=== PATIENT | female | born 1960 | race Caucasian/White ===

== ENCOUNTER 2016-08-29 01:40 | Inpatient (IN) | payer OTHER, MEDICARE ==
[~2016-08-29 01:40] MED LIST: ALPR1 PO; DICL75 PO; ESTR0.5T9 PO; LORTA5 PO; PROG100C PO; REST7.5C PO; ROBA750T3 PO; TRAZ100 PO; ZANA4CAP PO
[2016-08-29 02:19] VITALS: BP 138/88; PULSE 80; RESP 16; O2SAT 100
--- NOTE | 2016-08-29 02:25 | PD ---
HPI Chief Complaint: Psychiatric Symptoms Time Seen by Provider: 02:25 Travel History International Travel<30 days: No Contact w/Intl Traveler<30days: No Traveled to known affect area: No History of Present Illness HPI 55-year-old female presents to the emergency department as a transfer from [facility]. Patient was discharged there under a Langford act following a suspected overdose. Patient states she has history of depression and anxiety. She states that she takes Xanax and Ativan scheduled regularly around-the- clock. She denies any suicidal or homicidal ideations. States that she lost her in February and her depression is worsened. At this time she has no other symptoms to report [facility] Past Medical History Anxiety: Yes Cardiovascular Problems: Yes (MURMUR) Diminished Hearing: No Insomnia: Yes Musculoskeletal: Yes (LEFT FOOT DROP/NERVE DAMAGE) Past Surgical History Cholecystectomy: Yes Hysterectomy: Yes Tonsillectomy: Yes Social History Alcohol Use: No Tobacco Use: No Substance Use: No Allergies-Medications (Allergen,Severity, Reaction): Coded Allergies: Erythromycin (Verified Allergy, Severe, Rash, 09/22/15) Penicillin (Verified Allergy, Severe, Rash, 09/22/15) Shellfish (Verified Allergy, Severe, Rash, 09/22/15) Reported Meds & Prescriptions Reported Meds & Active Scripts Active Diclofenac Sodium Dr (Diclofenac Sod) 75 Mg Tab 75 Mg PO BID PRN Robaxin-750 (Methocarbamol) 750 Mg Tab 750 Mg PO QID PRN Reported Progesterone 100 Mg Cap 100 Mg PO Restoril 7.5 mg (Temazepam) 7.5 Mg Cap 1 Cap PO HS Hydrocodone/Acetaminophen 5 mg/325 mg 1 Tab Tab 1 Tab PO Q6H PRN Trazodone HCl 100 Mg Tab 100 Mg PO HS Zanaflex 4 mg capsule (Tizanidine HCl) 4 Mg Cap 4 Mg PO BID Estrace (Estradiol) 0.5 Mg Tab 1 Mg PO DAILY Xanax 1 Mg Tab (Alprazolam) 1 Mg Tab 1 Mg PO TID Review of Systems Except as stated in HPI: all other systems reviewed are Neg Physical Exam Narrative GENERAL: Well-nourished, well-developed female patient, in no acute distress SKIN: Focused skin assessment warm/dry. HEAD: Normocephalic. EYES: No scleral icterus. No injection or drainage. NECK: Supple, trachea midline. No JVD or lymphadenopathy. CARDIOVASCULAR: Regular rate and rhythm without murmurs, gallops, or rubs. RESPIRATORY: Breath sounds equal bilaterally. No accessory muscle use. GASTROINTESTINAL: Abdomen soft, non-tender, nondistended. MUSCULOSKELETAL: No cyanosis, or edema. BACK: Nontender without obvious deformity. No CVA tenderness. Data Data Last Documented VS Vital Signs Date Time Temp Pulse Resp B/P Pulse Ox O2 Delivery O2 Flow Rate FiO2 08/29/16 02:19 80 16 138/88 100 Room Air Orders Diet Regular Basic (08/29/16 Breakfast) [facility] Medical Decision Making Medical Screen Exam Complete: Yes Emergency Medical Condition: Yes Medical Record Reviewed: Yes Differential Diagnosis Mood disorder versus personality disorder versus adjustment reaction disorder versus overdose intentional versus accidental Narrative Course 55-year-old female presents to emergency department under a Langford act for psychiatric evaluation. Patient appears without distress. She is very fixated on getting her Xanax here today. Denies suicidal or homicidal ideations. Patient was discharged medically cleared from [facility]. She remains medically cleared here, awaiting psychiatric evaluation. Diagnosis Primary Impression: Adjustment reaction with anxiety and depression Condition: Stable Iza Haider August 29, 2016 02:25
[2016-08-29 06:00] VITALS: BP 138/82; PULSE 80; RESP 18; O2SAT 94
[2016-08-29 11:38] VITALS: BP 129/72; PULSE 92; RESP 18; TEMP 99
--- NOTE | 2016-08-29 11:53 | PD ---
History of Present Illness Chief Complaint: Psychiatric Symptoms Travel History International Travel<30 Days: No Contact w/Intl Traveler<30days: No Known affected area: No Legal Status Legal Status: Langford Act Langford Act Signed By: History of Present Illness: This is a 55-year-old female who was transferred to this facility from [facility]. The patient reportedly overdosed on benzodiazepines and opiates. She was admitted there on 22 August and one week later transferred here. She is unable to provide any history to this physician and is blinking and clammy. According to [facility] records, she was appropriate, verbal and cooperative as recently as yesterday. She is being admitted to the medicine service here at [place]. The etiology of her mental status changes is uncertain at this time. [facility] Past Medical History Anxiety: Yes Depression: Yes Cardiovascular Problems: Yes (MURMUR) Diabetes: No Diminished Hearing: No Insomnia: Yes Musculoskeletal: Yes (LEFT FOOT DROP/NERVE DAMAGE) Seizures: No ?: Not Past Surgical History Cholecystectomy: Yes Hysterectomy: Yes Tonsillectomy: Yes Psychiatric History Psychiatric History Hx Psychiatric Treatment: Reportedly treated for depression in the past. History of type of treatment, alcohol or drug abuse, etc. is unknown at this time. Social History Hx Alcohol Use: No Hx Tobacco Use: No Hx Substance Use: No Allergies-Medications (Allergen,Severity, Reaction): Coded Allergies: Erythromycin (Verified Allergy, Severe, Rash, 09/22/15) Penicillin (Verified Allergy, Severe, Rash, 09/22/15) Shellfish (Verified Allergy, Severe, Rash, 09/22/15) Reported Meds & Prescriptions Reported Meds & Active Scripts Active Diclofenac Sodium Dr (Diclofenac Sod) 75 Mg Tab 75 Mg PO BID PRN Robaxin-750 (Methocarbamol) 750 Mg Tab 750 Mg PO QID PRN Reported Progesterone 100 Mg Cap 100 Mg PO Restoril 7.5 mg (Temazepam) 7.5 Mg Cap 1 Cap PO HS Hydrocodone/Acetaminophen 5 mg/325 mg 1 Tab Tab 1 Tab PO Q6H PRN Trazodone HCl 100 Mg Tab 100 Mg PO HS Zanaflex 4 mg capsule (Tizanidine HCl) 4 Mg Cap 4 Mg PO BID Estrace (Estradiol) 0.5 Mg Tab 1 Mg PO DAILY Xanax 1 Mg Tab (Alprazolam) 1 Mg Tab 1 Mg PO TID Review of Systems ROS Limitations: Unresponsive Exam Exam Limitations: Altered Mental Status Alert: No [facility] Medical Decision Making Medical Record Reviewed: Yes Assessment/Plan Patient being admitted to medicine service. Orders Diet Regular Basic (08/29/16 Breakfast) Diet Regular Basic (08/29/16 Lunch) Results Vital Signs Date Time Temp Pulse Resp B/P Pulse Ox O2 Delivery O2 Flow Rate FiO2 08/29/16 11:38 99.0 92 18 129/72 08/29/16 06:00 80 18 138/82 94 Room Air 08/29/16 02:19 80 16 138/88 100 Room Air Diagnosis Primary Impression: Cognitive and neurobehavioral dysfunction Condition: Stable Yusef Munguia MD August 29, 2016 11:53
[2016-08-29] MEDS ORDERED: SODIUM CHLOR 0.9% 1000 ML INJ 1,000 ML IV ONE (12:19)
[2016-08-29] MEDS ORDERED: SODIUM CHLORIDE 0.9% FLUSH 10 ML FLUSH IVF PRN (12:30)
--- NOTE | 2016-08-29 12:33 | PD ---
HPI Chief Complaint: Psychiatric Symptoms Time Seen by Provider: 12:12 Travel History International Travel<30 days: No Contact w/Intl Traveler<30days: No Traveled to known affect area: No History of Present Illness HPI This is a 55-year-old female with a history of chronic back pain, depression, anxiety who was seen medically cleared for psychiatric evaluation last night. She apparently was noted to be "clammy" and had persistent blinking in the [facility] and was transferred over here for medical evaluation. Apparently, the psychiatry service was not comfortable admitting her to their service and requested a medical admission. On my evaluation, the patient was closing her eyes intentionally and not open them. When I told her I was medical doctor not psychiatric doctor, she opened her eyes. She would tell me her name. When asked if she had pain, she shook her head. When asked what kind of medical problems she has, she whispered that she is sleepy. There is no further history elicited secondary to her uncooperative state. When evaluating the patient's records, it appears that she had blood drawn at [facility] in [place] on the . At that time showed a urine toxicology that was positive for opiates and and soda has a pain. She did have an elevated troponin. There appeared to be no dressing this elevated troponin. I see no evidence of an EKG report. PFSH Past Medical History Anxiety: Yes Depression: Yes Cardiovascular Problems: Yes (MURMUR) Diabetes: No Diminished Hearing: No Insomnia: Yes Musculoskeletal: Yes (LEFT FOOT DROP/NERVE DAMAGE) Seizures: No ?: Not Past Surgical History Cholecystectomy: Yes Hysterectomy: Yes Tonsillectomy: Yes Social History Alcohol Use: No Tobacco Use: No Substance Use: No Allergies-Medications (Allergen,Severity, Reaction): Coded Allergies: Erythromycin (Verified Allergy, Severe, Rash, 09/22/15) Penicillin (Verified Allergy, Severe, Rash, 09/22/15) Shellfish (Verified Allergy, Severe, Rash, 09/22/15) Reported Meds & Prescriptions Reported Meds & Active Scripts Active Diclofenac Sodium Dr (Diclofenac Sod) 75 Mg Tab 75 Mg PO BID PRN Robaxin-750 (Methocarbamol) 750 Mg Tab 750 Mg PO QID PRN Reported Progesterone 100 Mg Cap 100 Mg PO Restoril 7.5 mg (Temazepam) 7.5 Mg Cap 1 Cap PO HS Hydrocodone/Acetaminophen 5 mg/325 mg 1 Tab Tab 1 Tab PO Q6H PRN Trazodone HCl 100 Mg Tab 100 Mg PO HS Zanaflex 4 mg capsule (Tizanidine HCl) 4 Mg Cap 4 Mg PO BID Estrace (Estradiol) 0.5 Mg Tab 1 Mg PO DAILY Xanax 1 Mg Tab (Alprazolam) 1 Mg Tab 1 Mg PO TID Review of Systems ROS Limitations: Altered Mental Status, Uncooperative Except as stated in HPI: all other systems reviewed are Neg Physical Exam Narrative GENERAL: Well-developed well-nourished female in no acute respiratory distress. SKIN: Focused skin assessment warm/dry. HEAD: Atraumatic. Normocephalic. EYES: Pupils equal and round. No scleral icterus. No injection or drainage. She was intentionally trying to keep her eyes closed. She did open them when I told her I was not a psychiatry physician. ENT: No nasal bleeding or discharge. Slight dry mucous membranes. NECK: Trachea midline. No JVD. CARDIOVASCULAR: Regular rate and rhythm. No murmur appreciated. RESPIRATORY: No accessory muscle use. Clear to auscultation. Breath sounds equal bilaterally. GASTROINTESTINAL: Abdomen soft, thin, nondistended. No hepatosplenic palpation. MUSCULOSKELETAL: No obvious deformities. No clubbing. No cyanosis. No edema. NEUROLOGICAL: Minimally verbal but would tell me her name and shake her head no to pain. She was observed moving her extremities 4. She intentionally tried to keep her eyes closed when I initially entered the room however she would open them when I told her I was a medical physician, not psychiatric physician. Data Data Last Documented VS Vital Signs Date Time Temp Pulse Resp B/P Pulse Ox O2 Delivery O2 Flow Rate FiO2 08/29/16 11:38 99.0 92 18 129/72 08/29/16 06:00 94 Room Air Orders Diet Regular Basic (08/29/16 Breakfast) Diet Regular Basic (08/29/16 Lunch) Electrocardiogram (08/29/16 12:19) Complete Blood Count With Diff (08/29/16 12:19) Comprehensive Metabolic Panel (08/29/16 12:19) Urinalysis - C+S If Indicated (08/29/16 12:19) Chest, Single Ap (08/29/16 12:19) Iv Access Insert/Monitor (08/29/16 12:19) Ecg Monitoring (08/29/16 12:19) Oximetry (08/29/16 12:19) Sodium Chloride 0.9% Flush (Ns Flush) (08/29/16 12:30) Sodium Chlor 0.9% 1000 Ml Inj (Ns 1000 M (08/29/16 12:19) Ckmb (Isoenzyme) Profile (08/29/16 12:19) Troponin I (08/29/16 12:19) CKMB (08/29/16 12:25) CKMB% (08/29/16 12:25) Labs Laboratory Tests Test 08/29/16 12:25 White Blood Count 9.8 TH/MM3 Red Blood Count 4.27 MIL/MM3 Hemoglobin 13.5 GM/DL Hematocrit 38.6 % Mean Corpuscular Volume 90.3 FL Mean Corpuscular Hemoglobin 31.6 PG Mean Corpuscular Hemoglobin 34.9 % Concent Red Cell Distribution Width 12.6 % Platelet Count 408 TH/MM3 Mean Platelet Volume 7.9 FL Neutrophils (%) (Auto) 78.9 % Lymphocytes (%) (Auto) 14.3 % Monocytes (%) (Auto) 5.6 % Eosinophils (%) (Auto) 0.1 % Basophils (%) (Auto) 1.1 % Neutrophils # (Auto) 7.7 TH/MM3 Lymphocytes # (Auto) 1.4 TH/MM3 Monocytes # (Auto) 0.5 TH/MM3 Eosinophils # (Auto) 0.0 TH/MM3 Basophils # (Auto) 0.1 TH/MM3 CBC Comment DIFF FINAL Differential Comment Sodium Level 141 MEQ/L Potassium Level 3.6 MEQ/L Chloride Level 103 MEQ/L Carbon Dioxide Level 28.6 MEQ/L Anion Gap 9 MEQ/L Blood Urea Nitrogen 8 MG/DL Creatinine 0.79 MG/DL Estimat Glomerular Filtration 76 ML/MIN Rate Random Glucose 97 MG/DL Calcium Level 9.3 MG/DL Total Bilirubin 0.3 MG/DL Aspartate Amino Transf 73 U/L (AST/SGOT) Alanine Aminotransferase 75 U/L (ALT/SGPT) Alkaline Phosphatase 49 U/L Total Creatine Kinase 173 U/L Creatine Kinase MB 1.4 NG/ML Troponin I 0.05 NG/ML Total Protein 7.2 GM/DL Albumin 3.9 GM/DL [facility] Medical Decision Making Medical Screen Exam Complete: Yes Emergency Medical Condition: Yes Differential Diagnosis Metabolic derangement versus psychosis versus cognitive behavior disorder Narrative Course 55-year-old female who was sent from [facility] because they reported she was unconscious and diaphoretic. The patient was not cooperative with exam. She was closing her eyes intentionally. She was not following Commands intentionally. She has a normal CBC. CMP shows elevated liver enzymes in the 70s.. Psychiatry seen her in and is not comfortable admitting her to psychiatry floor. They're requesting a medicine admission. [facility] who agreed to bring her in under his service for 24 hours for observation. The patient will be admitted to the [facility] psych floor for observation. I anticipate she will be cleared and able to be transferred to the psychiatric service tomorrow. Diagnosis Primary Impression: Cognitive and neurobehavioral dysfunction Additional Impression: previous intentional overdose. Admitting Information Admitting Physician Requests: Observation Condition: Stable Bony Calix MD August 29, 2016 12:33
[2016-08-29 12:48] LABS: AUTOMATED NEUTROPHIL # 7.7 TH/MM3 (1.8-7.7); BASOPHIL # 0.1 TH/MM3 (0-0.2); BASOPHIL % 1.1 % (0.0-2.0); EOSINOPHIL % 0.1 % (0.0-4.0); HEMATOCRIT 38.6 % (35.0-46.0); HEMO FLAGS DIFF FINAL; LYMPH % 14.3 % (9.0-44.0); LYMPHOCYTE # 1.4 TH/MM3 (1.0-4.8); MEAN CELL VOLUME 90.3 FL (80.0-100.0); MEAN CORPUSCULAR HEMOGLOBIN 31.6 PG (27.0-34.0); MEAN CORPUSCULAR HGB CONC 34.9 % (32.0-36.0); MONO % 5.6 % (0.0-8.0); NEUT % 78.9 % (16.0-70.0); PLATELET COUNT 408 TH/MM3 (150-450); RED BLOOD COUNT 4.27 MIL/MM3 (4.00-5.30); RED CELL DISTRIBUTION WIDTH 12.6 % (11.6-17.2); WHITE BLOOD COUNT 9.8 TH/MM3 (4.0-11.0)
[2016-08-29 13:02] LABS: ANION GAP 9 MEQ/L (5-15); AST (GOT) 73 U/L (15-37); BICARBONATE 28.6 MEQ/L (21.0-32.0); BLOOD UREA NITROGEN 8 MG/DL (7-18); CHLORIDE 103 MEQ/L (98-107); GLOMERULAR FILTRATION RATE 76 ML/MIN (>89); POTASSIUM 3.6 MEQ/L (3.5-5.1); SODIUM (NA) 141 MEQ/L (136-145)
[2016-08-29 13:10] LABS: ALKALINE PHOSPHATASE 49 U/L (45-117); ALT (GPT) 75 U/L (10-53); CREATINE KINASE 173 U/L (26-192); TOTAL BILIRUBIN ADULT 0.3 MG/DL (0.2-1.0)
[2016-08-29 13:22] LABS: CKMB 1.4 NG/ML (0.5-3.6)
--- NOTE | 2016-08-29 13:26 | RADRPT ---
EXAM DATE/TIME: 08/29/2016 12:43 [place] COMPARISON: SHOULDER LEFT LTD (2VWS), September 22, 2015, 19:45. INDICATIONS : Syncope. MEDICAL HISTORY : None. SURGICAL HISTORY : None. ENCOUNTER: Initial ACUITY: 1 day PAIN SCORE: Non-responsive. LOCATION: Bilateral chest FINDINGS: A single view of the chest demonstrates the lungs to be symmetrically aerated without evidence of mas s, infiltrate or effusion. The cardiomediastinal contours are unremarkable. Osseous structures are intact. CONCLUSION: 1. No acute cardiopulmonary findings. Jose Alfredo Alfaro MD on August 29, 2016 at 13:21 Board Certified Radiologist. This report was verified electronically.
[2016-08-29] MEDS ORDERED: LORazepam 2 MG/ML VIAL ONE (14:24)
[2016-08-29] MEDS ORDERED: SODIUM CHLORID 0.9% 500 ML INJ 500 ML IV ONE (14:30)
[2016-08-29] MEDS ORDERED: ONDANSETRON HCL 4 MG/2 ML VIAL IV PUSH PRN (14:30)
[2016-08-29] MEDS ORDERED: LORazepam 2 MG/ML VIAL IV PUSH PRN ×5 (14:30→18:00)
--- NOTE | 2016-08-29 14:41 | PD.CONS ---
HPI Service [facility] Consult Requested By Dr. Calix Reason for Consult medical clearance Primary Care Physician Matilde Iqbal MD Diagnoses: History of Present Illness patient is a 55 y/o female with history of anxiety and depression who was initially admitted to [facility] for drug overdose and depression. during that admission she had MRI/ CT of the brain , EEG which were unremarkable. she was found to have elevated troponin for which she had stress test which was unremarkable as well. she was cleared for transfer to this hospital for further psych evaluation. however while she was being evaluated in ER she was found somewhat clammy for which she was transferred back to medicine. at the time of my evaluation she was in no acute distress. she was awake, alert and oriented to person, place and time. she says that she 's having some pain to the left ankle- otherwise she denies any other complaints. Review of Systems ROS Limitations: Poor Historian Musculoskeletal: COMPLAINS OF: Joint pain (left ankle) Past Family Social History Allergies: Coded Allergies: Erythromycin (Verified Allergy, Severe, Rash, 09/22/15) Penicillin (Verified Allergy, Severe, Rash, 09/22/15) Shellfish (Verified Allergy, Severe, Rash, 09/22/15) Past Medical History anxiety and depression. Past Surgical History back surgery per medical record. Reported Medications Reported Progesterone 100 Mg Cap 100 Mg PO Restoril 7.5 mg (Temazepam) 7.5 Mg Cap 1 Cap PO HS Hydrocodone/Acetaminophen 5 mg/325 mg 1 Tab Tab 1 Tab PO Q6H PRN Trazodone HCl 100 Mg Tab 100 Mg PO HS Zanaflex 4 mg capsule (Tizanidine HCl) 4 Mg Cap 4 Mg PO BID Estrace (Estradiol) 0.5 Mg Tab 1 Mg PO DAILY Xanax 1 Mg Tab (Alprazolam) 1 Mg Tab 1 Mg PO TID Active Ordered Medications Current Medications Sodium Chloride 2 ml 2 ml UNSCH PRN IVF FLUSH AFTER USING IV ACCESS; Start 08/29 at 12:30 Sodium Chloride (NS 1000 ml Inj) 1,000 ml @ 1,000 mls/hr Q1H ONCE IV Last administered on 08/29/16t 12:38; Start 08/29/16 at 12:19; Stop 08/29/16 at 13:18; Status DC Social History no smoking or drinking. Physical Exam Vital Signs Vital Signs Date Time Temp Pulse Resp B/P Pulse Ox O2 Delivery O2 Flow Rate FiO2 08/29/16 11:38 99.0 92 18 129/72 08/29/16 06:00 80 18 138/82 94 Room Air 08/29/16 02:19 80 16 138/88 100 Room Air Physical Exam GENERAL: This is a well-nourished, well-developed patient, in no apparent distress. SKIN: No rashes, ecchymoses or lesions. Cool and dry. HEAD: Atraumatic. Normocephalic. No temporal or scalp tenderness. EYES: Pupils equal round and reactive. Extraocular motions intact. No scleral icterus. No injection or drainage. ENT: Nose without bleeding, purulent drainage or septal hematoma. Throat without erythema, tonsillar hypertrophy or exudate. Uvula midline. Airway patent. NECK: Trachea midline. No JVD or lymphadenopathy. Supple, nontender, no meningeal signs. CARDIOVASCULAR: Regular rate and rhythm without murmurs, gallops, or rubs. RESPIRATORY: Clear to auscultation. Breath sounds equal bilaterally. No wheezes , rales, or rhonchi. GASTROINTESTINAL: Abdomen soft, non-tender, nondistended. No hepato-splenomegaly , or palpable masses. No guarding. MUSCULOSKELETAL: Extremities without clubbing, cyanosis, or edema. No joint tenderness, effusion, or edema noted. No calf tenderness. Negative Homans sign bilaterally. NEUROLOGICAL: Awake and alert. Cranial nerves II through XII intact. Motor and sensory grossly within normal limits. Five out of 5 muscle strength in all muscle groups. Normal speech. Laboratory Laboratory Tests Test 08/29/16 12:25 White Blood Count 9.8 Red Blood Count 4.27 Hemoglobin 13.5 Hematocrit 38.6 Mean Corpuscular Volume 90.3 Mean Corpuscular Hemoglobin 31.6 Mean Corpuscular Hemoglobin 34.9 Concent Red Cell Distribution Width 12.6 Platelet Count 408 Mean Platelet Volume 7.9 Neutrophils (%) (Auto) 78.9 Lymphocytes (%) (Auto) 14.3 Monocytes (%) (Auto) 5.6 Eosinophils (%) (Auto) 0.1 Basophils (%) (Auto) 1.1 Neutrophils # (Auto) 7.7 Lymphocytes # (Auto) 1.4 Monocytes # (Auto) 0.5 Eosinophils # (Auto) 0.0 Basophils # (Auto) 0.1 CBC Comment DIFF FINAL Differential Comment Sodium Level 141 Potassium Level 3.6 Chloride Level 103 Carbon Dioxide Level 28.6 Anion Gap 9 Blood Urea Nitrogen 8 Creatinine 0.79 Estimat Glomerular Filtration 76 Rate Random Glucose 97 Calcium Level 9.3 Total Bilirubin 0.3 Aspartate Amino Transf 73 (AST/SGOT) Alanine Aminotransferase 75 (ALT/SGPT) Alkaline Phosphatase 49 Total Creatine Kinase 173 Creatine Kinase MB 1.4 Troponin I 0.05 Total Protein 7.2 Albumin 3.9 Result Diagram: 08/29/16 1225 08/29/16 1225 Imaging Last Impressions Chest X-Ray 08/29/16 1219 Signed Impressions: Service Date/Time: Monday, August 29, 2016 12:43 - CONCLUSION: 1. No acute cardiopulmonary findings. Jose Alfredo Alfaro MD Assessment and Plan Assessment and Plan A/P - depression/ drug overdose patient to be evaluated by the psych. of note had a negative MRI/CT head and EEG during her recent admission at [facility]. -mild elevation of LFT's-this can be followed up as outpatient. patient is medically clear for discharge to psych facility for further psychiatric evaluation. thank you for the consult. Discussed Condition With , the patient and RN. Hever Barnhart MD August 29, 2016 14:41
[2016-08-29] MEDS ORDERED: LORazepam 1 MG TAB PO PRN ×2 (15:45→18:00)
[2016-08-29] MEDS ORDERED: ALUMINUM/MAGNESIUM/SIMETH 30 ML CUP PO PRN (15:45)
[2016-08-29] MEDS ORDERED: LORazepam 2 MG/ML VIAL IM PRN (15:45)
[2016-08-29] MEDS ORDERED: HALOPERIDOL LACTATE 5 MG/ML AMP IM ONE (15:45)
[2016-08-29] MEDS ORDERED: diphenhydrAMINE HCL 50 MG/ML VIAL IM ONE (15:45)
[2016-08-29] MEDS ORDERED: MAGNESIUM HYDROXIDE SUSP 30 ML CUP PO PRN (15:45)
--- NOTE | 2016-08-29 17:49 | HHI.HP ---
Provisional Diagnosis Admission Date August 29, 2016 at 15:07 [place] I. 1. Adjustment disorder, unspecified 2. Suspect polysubstance abuse [place] II. Deferred [place] V. GAF unclear Certification of Person's Competence To Provide Express and Informed Consent I have personally examined Rianna Donnelly , a person being served at [facility] on, August 29, 2016 17:21. Express and informed consent means consent voluntarily given in writing, by a competent person, after sufficient explanation and disclosure of the subject matter involved to enable the person to make a knowing and willful decision without any element of force, fraud, deceit, duress, or other form of constraint or coercion. This person is 18 years of age or older, is not now known to be incompetent to consent to treatment with a guardian advocate, and does not have a health care surrogate or proxy currently making medical treatment decisions. I have found this person to be one of the following: [] Competent to provide express and informed consent, as defined above, for voluntary admission to this facility and is competent to provide express and informed consent for treatment. He/she has the consistent capacity to make well reasoned, willful, and knowing decisions concerning his or her medical or mental health treatment. The person fully and consistently understands the purpose of the admission for examination/placement and is fully capable of personally exercising all rights assured under [place] [] Incompetent to provide express and informed consent to voluntary admission, and this is incompetent to provide express and informed consent to treatment. The person must be transferred to involuntary status and a petition for a guardian advocate filed with the Circuit Court. [] Refusing to provide express and informed consent to voluntary admission but is competent to provide express and informed consent for treatment. The person must be discharged or transferred to involuntary status. Form shall be completed within 24 hours of a person's arrival at the receiving facility and filed in the clinical record of each person: 1. Admitted on a voluntary basis 2. Permitted to provide express and informed consent to his/her own treatment 3. Allowed to transfer from involuntary to voluntary status 4. Prior to permitting a person to consent to his or her own treatment after having been previously found incompetent to consent to treatment. History of Present Illness Capacity: Lacks Capacity HPI Ms. Donnelly is a 55 year-old female brought to our ED in transfer from [facility] under a Langford Act alleging altered mentation from suspected drug OD. Patient was observed for the better part of a week over at [facility] and apparently had significant encephalopathy from her presumed overdose, which may have included benzodiazepines and opiates. Records from that hospitalization reviewed. She was medically cleared for transfer here to [place]. Reviewing our own electronic medical record, I see no prior psychiatric contact. Apparently, in the ED, the patient was blinking and appeared "clammy" to Dr. Munguia and the medical consultation was requested. I have discussed the case with Dr. Barnhart who has evaluated the patient and medically cleared the patient for inpatient psychiatry. Patient seen and examined with nurses Sheron and Marilyn. Chart reviewed. Case discussed with nursing staff. Patient has apparently been highly behavioral both in the ED and on the unit. There is some suspicion from nursing staff that this is medication seeking behavior. On my examination today, the patient is not at all forthcoming. She is oppositional and generally uncooperative with evaluation. She declines to answer even basic orientation questions, although she knows that she is in a hospital. With multiple attempts at questioning, the patient finally does deny any suicidal or homicidal ideation. She denies any audiovisual hallucinations. Psychiatric interview is otherwise quite limited because of patient uncooperativeness. I am unable to obtain any past psychiatric, family, chemical dependency or social history from this patient because she is uncooperative. I did review E-FORCSE report: [employer], early refills noted. Fill Date Tvhlouc-Jxh-Oblv Qty Days Written Prescriber Name 08/14/2016 HYDROCODONE-CHLORPHEN ER SUSP 70 7 SARI DE LEON 07/28/2016 HYDROCODON-ACETAMINOPHEN 5-325 120 30 LOLLY RENETTA Roland MD 07/27/2016 ALPRAZOLAM 1 MG TABLET 120 30 LOLLY RENETTA Roland MD 07/04/2016 TEMAZEPAM 30 MG CAPSULE 90 90 LOLLY RENETTA Roland MD 06/27/2016 ALPRAZOLAM 1 MG TABLET 120 30 LOLLYLuan Roland MD 05/31/2016 ALPRAZOLAM 1 MG TABLET 120 30 LOLLYLuan Roland MD 05/21/2016 HYDROCODON-ACETAMINOPHEN 5-325 120 30 LOLLYDICK Roland MD 05/01/2016 ALPRAZOLAM 1 MG TABLET 120 30 LOLLYLuan Roland MD 04/21/2016 HYDROCODON-ACETAMINOPHEN 5-325 120 30 LOLLYDICK Roland MD 04/21/2016 ALPRAZOLAM 1 MG TABLET 90 30 LOLLY Roland MD 04/16/2016 TEMAZEPAM 30 MG CAPSULE 90 90 LOLLYDICK Roladn MD 03/24/2016 ALPRAZOLAM 1 MG TABLET 150 30 JOLLYQUANICETO RUIZON 03/19/2016 DIAZEPAM 5 MG TABLET 10 4 ELI MCKEONENDOLYLuan GARCIA 03/19/2016 HYDROCODON-ACETAMINOPHEN 5-325 120 30 LOLLYDICK Roland MD 03/04/2016 ALPRAZOLAM 1 MG TABLET 90 30 LOLLYDICK Roland MD 02/12/2016 HYDROCODON-ACETAMINOPHEN 5-325 120 30 LOLLY Roland MD 01/29/2016 ALPRAZOLAM 1 MG TABLET 90 30 LOLLYDICK Roland MD 01/18/2016 TEMAZEPAM 30 MG CAPSULE 90 90 LOLLY Roland MD 01/03/2016 ALPRAZOLAM 1 MG TABLET 90 30 LOLLYDICK Roland MD 12/17/2015 HYDROCODON-ACETAMINOPHEN 5-325 120 30 LOLLYDICK Roland MD 12/04/2015 ALPRAZOLAM 1 MG TABLET 90 30 LOLLYDICK Roland MD 11/08/2015 HYDROCODON-ACETAMINOPHEN 5-325 120 30 LOLLYDICK Roland MD 11/04/2015 ALPRAZOLAM 1 MG TABLET 90 30 LOLLYDICK Roland MD 10/22/2015 TEMAZEPAM 30 MG CAPSULE 90 90 LOLLY Roland MD 10/06/2015 ALPRAZOLAM 1 MG TABLET 90 30 LOLLYDICK Roland MD 10/01/2015 HYDROCODON-ACETAMINOPHEN 5-325 120 30 DAQUANICETO RUIZON 09/06/2015 ALPRAZOLAM 1 MG TABLET 90 30 LOLLYLuan Roland MD 08/30/2015 HYDROCODON-ACETAMINOPHEN 5-325 120 30 DAQUANICETO NAYAN MARION No numbers in EMR for collateral, nor will patient provide any to me now. Review of Systems ROS Limitations: Uncooperative Other ROS limited by patient's uncooperativeness Past Psych History Psychological trauma history Unable to obtain, patient uncooperative Violence risk - others (6 mos) Indeterminate Violence risk - self (6 mos) Indeterminate Substance Abuse History Drugs/Alcohol past 12 months Unable to obtain, patient uncooperative Past Family Social History Coded Allergies: Erythromycin (Verified Allergy, Severe, Rash, 09/22/15) Penicillin (Verified Allergy, Severe, Rash, 09/22/15) Shellfish (Verified Allergy, Severe, Rash, 09/22/15) Past Medical History See electronic medical record Active Scripts Diclofenac Sod (Diclofenac Sodium Dr)75 Mg Tab75 Mg PO BID PRN (PAIN) #20 TAB Prov:Tierra Keith MD 09/22/15 Methocarbamol (Robaxin-750)750 Mg [id number] Mg PO QID PRN (PAIN) #20 TAB Prov:Tierra Keith MD 09/22/15 Reported Medications Progesterone Micronized (Progesterone)100 Mg [id number] Mg PO 09/22/15 Temazepam 7.5 mg (Restoril 7.5 mg)7.5 Mg Cap1 Cap PO HS 09/22/15 Hydrocodone/Acetaminophen 5 mg/325 mg 1 Tab Tab1 Tab PO Q6H PRN 01/28/13 Trazodone HCl 100 Mg [id number] Mg PO HS 01/28/13 Tizanidine 4 mg capsule (Zanaflex 4 mg capsule)4 Mg Cap4 Mg PO BID 01/28/13 Estradiol (Estrace)0.5 Mg Tab1 Mg PO DAILY 01/28/13 Alprazolam (Xanax 1 Mg Tab)1 Mg Tab1 Mg PO TID 01/28/13 Current Medications Medications (Trade) Dose Ordered Sig/Silas Route Start Time Stop Time Status Last Admin (NS Flush) 2 ml UNSCH PRN IVF 08/29/16 12:30 (Ativan Inj) 1 mg Q6H PRN IV PUSH 08/29/16 14:30 08/29/16 14:47 Ondansetron HCl 4 mg 4 mg Q8H PRN IV PUSH 08/29/16 14:30 (NS 500 ml Inj) 500 ml @ 50 mls/hr Q10H ONCE IV 08/29/16 14:30 08/30/16 00:29 (Ativan) 1 mg Q6H PRN PO 08/29/16 15:45 (Ativan Inj) 1 mg Q6H PRN IM 08/29/16 15:45 (Milk Of Magnesia Liq) 30 ml DAILY PRN PO 08/29/16 15:45 (Mag-Al Plus Susp Liq) 30 ml Q6H PRN PO 08/29/16 15:45 (Habitrol 21 Mg Patch.24 Hr) 1 patch DAILY T-DERMAL 08/30/16 09:00 Miscellaneous Information 1 HS T-DERMAL 08/29/16 21:00 Family History Unable to obtain, patient uncooperative Social History Unable to obtain, patient uncooperative Patient's Strengths (min. 2) In monitored setting. Verbally fluent. Physical Exam Physical examination completed by hospitalist marketing regional consultant. On my examination today, the patient appears to be in no acute physical distress. She is slightly generally tremulous, but this seems somewhat distractible and I can detect no diaphoresis, no mydriasis, no other signs of GABAergic withdrawal. Signs of opiate withdrawal noted. No other motoric abnormalities noted. Vital Signs Vital Signs Date Time Temp Pulse Resp B/P Pulse Ox O2 Delivery O2 Flow Rate FiO2 08/29/16 11:38 99.0 92 18 129/72 08/29/16 06:00 94 Room Air Lab Results MRI and CT of brain obtained at outside hospital both negative for acute process. Item Value Date Time White Blood Count 9.8 TH/MM3 08/29/16 1225 Hemoglobin 13.5 GM/DL 08/29/16 1225 Platelet Count 408 TH/MM3 08/29/16 1225 Sodium Level 141 MEQ/L 08/29/16 1225 Potassium Level 3.6 MEQ/L 08/29/16 1225 Chloride Level 103 MEQ/L 08/29/16 1225 Carbon Dioxide Level 28.6 MEQ/L 08/29/16 1225 Blood Urea Nitrogen 8 MG/DL 08/29/16 1225 Creatinine 0.79 MG/DL 08/29/16 1225 Estimat Glomerular Filtration Rate 76 ML/MIN L 08/29/16 1225 Aspartate Amino Transf (AST/SGOT) 73 U/L H 08/29/16 1225 Alanine Aminotransferase (ALT/SGPT) 75 U/L H 08/29/16 1225 Alkaline Phosphatase 49 U/L 08/29/16 1225 Total Creatine Kinase 173 U/L 08/29/16 1225 Last Impressions Chest X-Ray 08/29/16 1219 Signed Impressions: Service Date/Time: Monday, August 29, 2016 12:43 - CONCLUSION: 1. No acute cardiopulmonary findings. Jose Alfredo Alfaro MD Mental Status Examination Patient is in hospital [facility]. She is somewhat disheveled but appears to be maintaining basic hygiene. She is awake and alert and oriented to person and knows that she is in a hospital but otherwise refuses to cooperate with mental status testing. Motor exam as above. Steady gait and station. Speech is within normal limits for rate, tone and volume. Patient declines to provide mood. Affect is somewhat restricted and dysphoric. Thought process seems generally linear but the sample is limited, it does seem like patient's refusal to participate in evaluation is volitional. No ramon delusions, but examination is once again limited. Denies AVH. Denies suicidal or homicidal ideation. Insight and judgment are unclear at present. Assessment & Plan Problem List: (1) Adjustment disorder ICD Code: F43.20 Assessment & Plan This is a 55-year-old female of uncertain past psychiatric history transferred from outside hospital under [place] act. It is unclear from documentation from outside facility and patient refuses to tell me now whether her presenting overdose was suicidal in nature. She denies any suicidal or homicidal ideation at this time but is otherwise uncooperative with evaluation. As such, it is difficult for me to formulate a differential diagnosis, although a substance use disorder is possible. Hospitalist has medically cleared the patient for inpatient psychiatry. I will plan to admit the patient to the inpatient psychiatric unit for observation. Admit inpatient. Involuntary status. I've completed first opinion. Consult for second opinion. Request HCS/GA. Hospitalist marketing regional consultant input appreciated. No evidence of withdrawal at this time and the patient was monitored for a week at outside hospital. I will initiate a CIWA with Ativan out of an abundance of caution. Atarax as needed for anxiety, Cogentin as needed for EPS , Benadryl as needed for sleep. Vitals every shift. Counselor to see and to try to obtain collateral. Disposition planning. Estimated length of stay: 3-5 days. Discharge Planning Pending outcome of observation Request HC Surrog/Guard Advoc?: Yes Problem Qualifiers (1) Adjustment disorder: Qualified Code: F43.20 - Adjustment disorder, unspecified type José Summers MD August 29, 2016 17:49
[2016-08-29 17:56] VITALS: BP 173/87
[2016-08-29] MEDS ORDERED: BENZTROPINE MESYLATE 1 MG TAB PO PRN (18:00)
[2016-08-29] MEDS ORDERED: diphenhydrAMINE HCL 50 MG CAP PO PRN (18:00)
[2016-08-29] MEDS ORDERED: hydrOXYzine HCL 50 MG TAB PO PRN (18:00)
[2016-08-29] MEDS ORDERED: FLUMAZENIL 0.5 MG/5 ML VIAL IV PUSH PRN (18:00)
[2016-08-29] MEDS ORDERED: BENZTROPINE MESYLATE 2 MG/2 ML VIAL IM PRN (18:00)
[2016-08-29] MEDS ORDERED: LORazepam 2 MG TAB PO PRN (18:00)
[2016-08-29] MEDS ORDERED: REMOVE OLD NICOTINE PATCH T-DERMAL SCH (21:00)
[2016-08-30 00:25] VITALS: BP 175/90; PULSE 136; RESP 28; O2SAT 96
[2016-08-30 00:30] VITALS: O2SAT 99
[2016-08-30 00:33] VITALS: O2SAT 99
[2016-08-30 01:00] VITALS: BP 137/88; PULSE 90; RESP 22; O2SAT 96
[2016-08-30] MEDS ORDERED: LORazepam 2 MG/ML VIAL IM PRN ×4 (01:30→02:00)
[2016-08-30 01:37] VITALS: BP 163/79; PULSE 102; RESP 22; O2SAT 98
[2016-08-30] MEDS ORDERED: NICOTINE 21 MG/24 HR PATCH T-DERMAL SCH (09:00)
--- NOTE | 2016-08-30 10:31 | EKG ---
Date Performed: 08/29/2016 Time Performed: 12:35:43 PTAGE: 55 years EKG: Sinus rhythm WITH SHORT ID INTERVAL POSSIBLE RIGHT VENTRICULAR CONDUCTION DELAY BORDERLINE ECG NO PREVIOUS TRACING DOCTOR: Bertrand Will Interpretating Date/Time 08/30/2016 10:29:40
== END 2016-08-30 01:45 | DRG 882 ==
LOC: NEPE 01:40 → NEDA 14:17 → OBSVTOIN 15:07 → H270 15:15
PROVIDERS: ADMIT Psychiatry & Neurology Psychiatry; ATTEND Psychiatry & Neurology Psychiatry
DX: F43.20 Adjustment disorder, unspecified (principal); R79.89 Other specified abnormal findings of blood chemistry
CPT/HCPCS: 71010; 80053; 82550; 82552; 84484; 85025; 93005; 96360; J2060; J7030

== ENCOUNTER 2016-08-30 02:00 | Inpatient (IN) | payer OTHER, MEDICARE ==
[~2016-08-30] VITALS: Ht 170.2 cm; Wt 44.2 kg
[2016-08-30 02:30] VITALS: BP 153/80; PULSE 96; RESP 20; TEMP 98.5; O2SAT 100
--- NOTE | 2016-08-30 03:07 | HHI.HP ---
[facility] Matilde Iqbal MD Admission Diagnosis Diagnoses: Past Family Social History Allergies: Coded Allergies: Erythromycin (Verified Allergy, Severe, Rash, 09/22/15) Penicillin (Verified Allergy, Severe, Rash, 09/22/15) Shellfish (Verified Allergy, Severe, Rash, 09/22/15) Physician Certification 2 Midnight Certification Type: Admission for Inpatient Services Order for Inpatient Services The services are ordered in accordance with Medicare regulations or non- Medicare payer requirements, as applicable. In the case of services not specified as inpatient-only, they are appropriately provided as inpatient services in accordance with the 2-midnight benchmark. Estimated LOS (days): 2 days is the estimated time the patient will need to remain in the hospital, assuming treatment plan goals are met and no additional complications. Post-Hospital Plan: Not yet determined Liseth Mckeon August 30, 2016 03:07
[2016-08-30] MEDS ORDERED: LORazepam 2 MG TAB PO PRN (03:15)
[2016-08-30] MEDS ORDERED: SODIUM CHLORIDE 0.9% FLUSH 10 ML FLUSH IV FLUSH PRN (03:15)
[2016-08-30] MEDS ORDERED: FLUMAZENIL 0.5 MG/5 ML VIAL IV PUSH PRN (03:15)
[2016-08-30] MEDS ORDERED: HALOPERIDOL LACTATE 5 MG/ML AMP IM PRN (03:15)
[2016-08-30] MEDS ORDERED: LORazepam 2 MG/ML VIAL IV PUSH PRN ×5 (03:15)
[2016-08-30] MEDS ORDERED: LORazepam 1 MG TAB PO PRN (03:15)
[2016-08-30] MEDS ORDERED: ONDANSETRON HCL 4 MG/2 ML VIAL IV PRN (03:15)
[2016-08-30] MEDS: MULTIVITAMIN INJ 10 ML, FOLIC ACID INJ 1 MG in SODIUM CHLORID 0.9% 500 ML INJ 500 ML IV SCH (04:00)
[2016-08-30] MEDS: THIAMINE INJ 100 MG in SODIUM CHLORIDE 0.9% INJ 100 ML IV SCH (04:00)
--- NOTE | 2016-08-30 04:23 | HHI.HP ---
[facility] Matilde Iqbal MD Admission Diagnosis Seizures vs Pseudoseizures . Diagnoses: (1) Seizures (2) Pseudoseizures (3) Benzodiazepine withdrawal Chief Complaint: [place] Act for drug overdose; is unsure why she is here during my visit Travel History International Travel<30 Days: No Contact w/Intl Traveler <30 Da: No History of Present Illness Ms. Donnelly is a 55 -year-old female with a history of anxiety, depression, chronic back pain, insomnia and hypertension who transferred to the [facility] emergency room from [facility] on 2015 for evaluation under Lang[place] Act for psychiatric evaluation for suspected intentional drug overdose. According to the emergency room records, she had a positive drug screen at [facility] on August 24 for benzodiazepines and opiates. At the time that I am seeing the patient, I do not have her records from [facility]. While in the emergency room, she had several episodes of being clammy and having her eyes blink rapidly. She was medically cleared twice for inpatient psychiatry with these episodes being determined to be pseudoseizures. Dr. Barnhart's [facility] inpatient consultation on 08/29/2016 states that she had an MRI/ CT of the brain, EEG, and stress test for elevated troponins all of which were unremarkable while at [facility]. A HALICAT was called after midnight for likely seizure activity. The patient was diaphoretic, shaking, and had eyes fluttering. The psychiatrist was notified and ordered Ativan 2 mg IM and according to the HALICAT RN, as soon as the medication was injected, the patient's "seizure activity" ceased. During this episode, her heart rate sustained in the 130s and her blood pressure was 175/90. Respirations were 28. [facility] hospitalists were called for transfer to the main hospital. The case was discussed with supervising physician Dr. Barrientos who recommended admission with neurology consultation to r/ o seizures. The patient was seen in her hospital room. She states she is confused and does not know why she is at the hospital. She verbalizes no memory of her time at [facility] in [place] and no memory of being at the psychiatric inpatient facility. She does not recall having any seizure activity. She is able to tell me the year, president, city, name of hospital, name of her primary care physician, location of her pharmacy at and [facility], and provided me with a fairly good medical history otherwise. She tells me she has had seizures for the past month or so that her physician Dr. Iqbal has been following but denies being on any medications for seizures. She reports having at least 3 seizures in the last month but cannot provide any reliable history on this in terms of whether the seizures had happened at a hospital or at home. She denies ever seeing a neurologist for this condition that she reports she had a seizure that lasted for 1.5 hours. She takes Xanax 1 mg 4 times a day and states that sometimes she takes up to 2 mg if needed in one dosing. She reports recently being treated with both azithromycin and ciprofloxacin for diarrhea and a URI. Her symptoms have since resolved. Her max temperature was 104 and was accompanied by chills. She had cough, congestion, clear mucus, and mild shortness of breath. She denied nausea and vomiting and denied bloody or black stools. She denied any hematuria or dysuria. She reports a history of anxiety since the age of 16, insomnia, and hypertension. She also reports chronic back pain from a microdiscectomy to L1- L2 in 2001 with subsequent left foot drop. She also reports a history of skin cancer to include basal cell carcinoma as well as melanoma. She reports surgical removal of skin cancers and denies any radiation or chemotherapy. She denies diabetes mellitus, heart disease, respiratory disease, kidney or liver problems, or thyroid disease. . Review of Systems Except as stated in HPI: all other systems reviewed are Neg Past Family Social History Past Medical History Hypertension Anxiety Insomnia Depression Chronic back pain status post L1-L2 micro-discectomy with subsequent left foot drop Basal cell cancer Melanoma Heart murmur since infancy ?Seizures? Past Surgical History Tonsillectomy Cholecystectomy Hysterectomy L1-L2 microdiscectomy 2001 . Reported Medications need to verify medications - I would recommend calling pharmacy as patient does not seem to have a good grasp on what medications she is taking the time of my visit . Allergies: Coded Allergies: Erythromycin (Verified Allergy, Severe, Rash, 09/22/15) Penicillin (Verified Allergy, Severe, Rash, 09/22/15) Shellfish (Verified Allergy, Severe, Rash, 09/22/15) Active Ordered Medications Current Medications Multivitamins 10 ml/Folic Acid 1 mg/Sodium Chloride 510.2 ml @ 125 mls/hr Q24H IV ; Start 08/30/16 at 04:00; Stop 09/04/16 at 03:59 Thiamine HCl/ Sodium Chloride (Thiamine Inj/NS Inj) 101 ml @ 100 mls/hr Q24H IV ; Start 08/30/16 at 04:00; Stop 09/02/16 at 03:59 Thiamine HCl (Vitamin B1) 100 mg DAILY PO ; Start 09/02/16 at 09:00 Flumazenil (Romazicon Inj) 0.2 mg Q1M PRN IV PUSH SEE LABEL COMMENTS; Start 08/30/16 at 03:15 Lorazepam (Ativan) 1 mg Q4H PRN PO CIWA 8 - 10; Start 08/30/16 at 03:15 Lorazepam (Ativan Inj) 1 mg Q4H PRN IV PUSH CIWA 8 - 10; Start 08/30/16 at 03:15 Lorazepam (Ativan) 2 mg Q2H PRN PO CIWA 11-14; Start 08/30/16 at 03:15 Lorazepam (Ativan Inj) 2 mg Q2H PRN IV PUSH CIWA 11-14; Start 08/30/16 at 03:15 Lorazepam (Ativan Inj) 2 mg Q1H PRN IV PUSH CIWA 15-20; Start 08/30/16 at 03:15 Lorazepam (Ativan Inj) 2 mg Q15M PRN IV PUSH CIWA > 20; Start 08/30/16 at 03:15 Haloperidol Lactate (Haldol Inj) 2 mg Q15M PRN IM SEE LABEL COMMENTS; Start 08/30/16 at 03:15 Lorazepam (Ativan Inj) 1 mg Q5M PRN IV PUSH SEIZURE; Start 08/30/16 at 03:15 Sodium Chloride (NS Flush) 2 ml UNSCH PRN IV FLUSH FLUSH AFTER USING IV ACCESS ; Start 08/30/16 at 03:15 Sodium Chloride (NS Flush) 2 ml BID IV FLUSH ; Start 5/6/17 at 09:00 Ondansetron HCl (Zofran Inj) 4 mg Q6H PRN IV NAUSEA OR VOMITING; Start 08/30/16 at 03:15 . Family History Mother with history of congestive heart failure Father with history of congestive heart failure, prostate cancer, and from sepsis Maternal grandmother with seizures Maternal cousin with seizures . Social History Tobacco: Reports she's never smoked Alcohol: Denies Illicit Drugs: Denies . Physical Exam Vital Signs Vital Signs Date Time Temp Pulse Resp B/P Pulse Ox O2 Delivery O2 Flow Rate FiO2 08/30/16 02:30 98.5 96 20 153/80 100 Physical Exam GENERAL: This is a thin, tremulous female patient. SKIN: No rashes, ecchymoses or lesions. Cool and dry. HEAD: Atraumatic. Normocephalic. EYES: No scleral icterus. No injection or drainage. ENT: Nose without bleeding, purulent drainage. NECK: Trachea midline. No JVD or lymphadenopathy. CARDIOVASCULAR: Regular rate and rhythm without murmurs, gallops, or rubs. RESPIRATORY: Clear to auscultation. Breath sounds equal bilaterally. No wheezes , rales, or rhonchi. GASTROINTESTINAL: Abdomen soft, non-tender, nondistended. No guarding. MUSCULOSKELETAL: Extremities without clubbing, cyanosis, or edema. No calf tenderness. NEUROLOGICAL: Awake and alert. Normal speech. Left ankle with 4+/5 muscle strength, otherwise all extremities with equal strength. Cranial nerves II through XII grossly intact. PSYCHOLOGICAL: Appears extremely anxious with mild memory impairment. . Assessment and Plan Problem List: (1) Seizures ICD Code: R56.9 Status: Acute (2) Pseudoseizures ICD Code: F44.5 Status: Acute (3) Benzodiazepine withdrawal ICD Code: F13.239 Status: Acute Assessment and Plan Seizures vs. Pseudoseizures - Consult neurology - assistance appreciated - Check EEG - Check CBC, magnesium, CMP - Monitor vital signs every 4 hours - Seizure precautions Suspected Benzodiazepine withdrawal - Continuous cardiac telemetry to monitor for arrhythmia - CIWA protocol - Multivitamin and thiamine supplementation - Withdrawal precautions Suspected intentional drug overdose - under Langford Act - consult psychiatry - Sitter at bedside DVT prophylaxis - Lovenox 40 mg subq q24h . Discussed Condition With hanger off, Halicat BOO Nick, and Dr. Barrientos . Attestation Agree w/ above assessment and plan of care. 55yo female tx from Psych to Med/Surg for apparent seizure activity. Unclear if Seizure vs Pseudoseizure. Possibly related to withdrawal? Recent CT/MRI/ EEG negative per records. -Seizure Precautions -Ativan prn -CIWA-? withdrawal, unclear if Benzo/Alcohol -Consult Neurology for further recommendations -Consult Psych to continue treatment plan Physician Certification 2 Midnight Certification Type: Admission for Inpatient Services Order for Inpatient Services The services are ordered in accordance with Medicare regulations or non- Medicare payer requirements, as applicable. In the case of services not specified as inpatient-only, they are appropriately provided as inpatient services in accordance with the 2-midnight benchmark. Estimated LOS (days): 1 days is the estimated time the patient will need to remain in the hospital, assuming treatment plan goals are met and no additional complications. Post-Hospital Plan: Not yet determined Liseth Mckeon August 30, 2016 04:23 Babita Barrientos MD August 30, 2016 04:47
[2016-08-30] MEDS: ENOXAPARIN SODIUM 40 MG/0.4 ML SYRINGE SQ SCH (06:36)
[2016-08-30 07:26] LABS: AUTOMATED NEUTROPHIL # 6.2 TH/MM3 (1.8-7.7); BASOPHIL # 0.1 TH/MM3 (0-0.2); BASOPHIL % 0.8 % (0.0-2.0); EOSINOPHIL % 0.3 % (0.0-4.0); HEMATOCRIT 32.7 % (35.0-46.0); HEMO FLAGS DIFF FINAL; LYMPH % 25.6 % (9.0-44.0); LYMPHOCYTE # 2.4 TH/MM3 (1.0-4.8); MEAN CELL VOLUME 89.7 FL (80.0-100.0); MEAN CORPUSCULAR HEMOGLOBIN 31.7 PG (27.0-34.0); MEAN CORPUSCULAR HGB CONC 35.4 % (32.0-36.0); MONO % 7.7 % (0.0-8.0); NEUT % 65.6 % (16.0-70.0); PLATELET COUNT 413 TH/MM3 (150-450); RED BLOOD COUNT 3.65 MIL/MM3 (4.00-5.30); RED CELL DISTRIBUTION WIDTH 12.3 % (11.6-17.2); WHITE BLOOD COUNT 9.4 TH/MM3 (4.0-11.0)
[2016-08-30 08:00] VITALS: BP 133/86; PULSE 88; RESP 21; TEMP 100.1; O2SAT 99
[2016-08-30 08:02] LABS: ALKALINE PHOSPHATASE 45 U/L (45-117); ALT (GPT) 60 U/L (10-53); ANION GAP 11 MEQ/L (5-15); AST (GOT) 49 U/L (15-37); BICARBONATE 27.3 MEQ/L (21.0-32.0); BLOOD UREA NITROGEN 5 MG/DL (7-18); CHLORIDE 105 MEQ/L (98-107); GLOMERULAR FILTRATION RATE 111 ML/MIN (>89); MAGNESIUM 1.9 MG/DL (1.5-2.5); POTASSIUM 3.1 MEQ/L (3.5-5.1); SODIUM (NA) 143 MEQ/L (136-145); TOTAL BILIRUBIN ADULT 0.4 MG/DL (0.2-1.0)
[2016-08-30] MEDS: SODIUM CHLORIDE 0.9% FLUSH 10 ML FLUSH IV FLUSH SCH ×2 (09:00→21:00)
--- NOTE | 2016-08-30 11:09 | PD.CONS ---
Provisional Diagnosis Admission Date August 30, 2016 at 02:00 [place] I. 1. Generalized Anxiety Disorder 2. Suspect some degree of benzodiazepine abuse [place] II. Deferred [place] V. GAF is 56 presently History of Present Illness Service Psychiatry Consult Requested By TONE Mckeon Reason for Consult Possible pseudoseizures Primary Care Physician Matilde Iqbal MD HPI Ms. Donnelly is a 55-year-old female with a reported history of anxiety who presented initially in transfer from outside hospital to the [facility]. She was evaluated by Dr. Munguia who ultimately decided to admit the patient to the inpatient psychiatric unit. I evaluated the patient yesterday afternoon on the inpatient psychiatric unit without her largely uncooperative. Overnight last night, the patient had an episode of shaking and a [facility] was called. Patient was transferred to the medical floor for further observation and management. Electronic medical record reviewed. Patient seen and examined. Chart reviewed. Case discussed with nursing staff. Eddie and aar Mendoza are at the bedside. On my evaluation today, the patient is considerably more cooperative. Her mental status is good today. She tells me that the reported overdose that led to her presenting to outside hospital was unintentional. Reji echoes this point. He notes that she had recently been prescribed cough syrup with opiate and she added this to her benzodiazepine and muscle relaxer and had an adverse reaction. Patient denies any suicidal or homicidal ideation, intent or plan at this time. She denies any issues with low mood or elevated mood, nor can I elicit any depressive or hypomanic/manic symptoms. She denies any hopeless or worthless feelings. She reports that she was eating well and attending to basic needs prior to coming into the hospital. She denies any audiovisual hallucinations and I can elicit no delusional beliefs. She does describe some generalized anxiety with associated sleep disturbance and muscle tension. The patient is somewhat medication seeking for benzodiazepines. Remainder of the psychiatric ROS is negative. With patient's permission, I obtained collateral from Reji. He has absolutely no concerns about the patient being a risk of harm towards self or others. He does not believe that she made a suicidal attempt prior to coming into the outside hospital. He is comfortable having the patient return home once she has been medically stabilized. Past psychiatric history: Patient reports a history of anxiety for which she is reportedly prescribed 4 mg of Xanax daily. This is prescribed to her by her primary care doctor. She is not under the care of a psychiatrist. She denies any history of psychiatric admissions or suicide attempts. Family history: Patient denies any family history of mental illness or suicide. Chemical dependency history: When confronted with the results of the controlled substances database report that I obtained yesterday, the patient admits that she may occasionally overuse her controlled substances but tends to minimize her use. She denies any other substance abuse. Social history: Patient notes that her in February. She feels that she is grieving appropriately. She has known her current fianc Reji for 5 years but they did not enter into a relationship until after her . She has no children. She has a pet dog. 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 She denies any or legal history. She denies any access to guns or firearms. She is a [employer]. Review of Systems Except as stated in HPI: all other systems reviewed are Neg Past Family Social History Coded Allergies: Erythromycin (Verified Allergy, Severe, Rash, 09/22/15) Penicillin (Verified Allergy, Severe, Rash, 09/22/15) Shellfish (Verified Allergy, Severe, Rash, 09/22/15) Past Medical History See electronic medical record Active Scripts Diclofenac Sod (Diclofenac Sodium Dr)75 Mg Tab75 Mg PO BID PRN (PAIN) #20 TAB Prov:Tierra Keith MD 09/22/15 Methocarbamol (Robaxin-750)750 Mg Gvy173 Mg PO QID PRN (PAIN) #20 TAB Prov:Tierra Keith MD 09/22/15 Reported Medications Progesterone Micronized (Progesterone)100 Mg Hgm144 Mg PO 09/22/15 Temazepam 7.5 mg (Restoril 7.5 mg)7.5 Mg Cap1 Cap PO HS 09/22/15 Hydrocodone/Acetaminophen 5 mg/325 mg 1 Tab Tab1 Tab PO Q6H PRN 01/28/13 Trazodone HCl 100 Mg Src571 Mg PO HS 01/28/13 Tizanidine 4 mg capsule (Zanaflex 4 mg capsule)4 Mg Cap4 Mg PO BID 01/28/13 Estradiol (Estrace)0.5 Mg Tab1 Mg PO DAILY 01/28/13 Alprazolam (Xanax 1 Mg Tab)1 Mg Tab1 Mg PO TID 01/28/13 Current Medications Medications (Trade) Dose Ordered Sig/Silas Route Start Time Stop Time Status Last Admin Multivitamins 10 ml/Folic Acid 1 mg/Sodium Chloride 510.2 ml @ 125 mls/hr Q24H IV 08/30/16 04:00 09/04/16 03:59 08/30/16 04:00 (Thiamine Inj/NS Inj) 101 ml @ 100 mls/hr Q24H IV 08/30/16 04:00 09/02/16 03:59 08/30/16 04:00 (Vitamin B1) 100 mg DAILY PO 09/02/16 09:00 (Romazicon Inj) 0.2 mg Q1M PRN IV PUSH 08/30/16 03:15 (Ativan) 1 mg Q4H PRN PO 08/30/16 03:15 (Ativan Inj) 1 mg Q4H PRN IV PUSH 08/30/16 03:15 (Ativan) 2 mg Q2H PRN PO 08/30/16 03:15 (Ativan Inj) 2 mg Q2H PRN IV PUSH 08/30/16 03:15 (Ativan Inj) 2 mg Q1H PRN IV PUSH 08/30/16 03:15 (Ativan Inj) 2 mg Q15M PRN IV PUSH 08/30/16 03:15 (Haldol Inj) 2 mg Q15M PRN IM 08/30/16 03:15 (Ativan Inj) 1 mg Q5M PRN IV PUSH 08/30/16 03:15 (NS Flush) 2 ml UNSCH PRN IV FLUSH 08/30/16 03:15 (NS Flush) 2 ml BID IV FLUSH 08/30/16 09:00 08/30/16 09:00 (Zofran Inj) 4 mg Q6H PRN IV 08/30/16 03:15 (Lovenox Inj) 40 mg Q24H SQ 08/30/16 06:00 08/30/16 06:36 (Xanax) 0.5 mg Q6HR PO 08/30/16 12:00 Family History See above Social History See above Patient's Strengths (min. 2) Supportive fianc. Verbally fluent. Physical Exam Physical exam completed by primary team. On my examination today, patient appears to be in no acute physical distress. She appears to be thin but well- developed. No motor abnormalities noted. Laboratories and vital signs reviewed : Vital Signs Vital Signs Date Time Temp Pulse Resp B/P Pulse Ox O2 Delivery O2 Flow Rate FiO2 08/30/16 08:00 100.1 88 21 133/86 99 Lab Results Item Value Date Time White Blood Count 9.4 TH/MM3 08/30/16658 Hemoglobin 11.6 GM/DL 08/30/16658 Platelet Count 413 TH/MM3 08/30/16658 Erythrocyte Sedimentation Rate 9 mm/hr 08/30/16658 Sodium Level 143 MEQ/L 08/30/16658 Potassium Level 3.1 MEQ/L L 08/30/16658 Chloride Level 105 MEQ/L 08/30/16658 Carbon Dioxide Level 27.3 MEQ/L 08/30/16658 Blood Urea Nitrogen 5 MG/DL L 08/30/16658 Creatinine 0.57 MG/DL 08/30/16658 Aspartate Amino Transf (AST/SGOT) 49 U/L H 08/30/16658 Alanine Aminotransferase (ALT/SGPT) 60 U/L H 08/30/16658 Alkaline Phosphatase 45 U/L 08/30/16658 Mental Status Examination Patient is in hospital gown. She is well groomed and maintaining basic hygiene. She is awake and alert and oriented 3. No evidence of delirium. She has a fine generalized tremor but no other abnormal motor movements are noted. Speech is within normal limits for rate, tone and volume. Language and fund of knowledge seem average. Mood is fair and affect is full and reactive. Thought process linear. No loosening of associations. No evident delusions. Denies audiovisual hallucinations. Denies suicidal or homicidal ideation, intent or plan. Insight and judgment are fair. Assessment & Plan Problem List: (1) Generalized anxiety disorder ICD Code: F41.1 Assessment & Plan This is a 55-year-old female with psychiatric history as detailed above who is presently admitted to the medical floor for evaluation of a shaking spell that she had on the inpatient psychiatric unit yesterday evening. The patient is much more cooperative with evaluation today, and I was able to perform full psychiatric evaluation and obtain collateral from her fianc, Reji. Patient is presently denying suicidal or homicidal ideation. She appears to be attending to her basic needs. Collateral from Reji is reassuring. Besides what I suspect is generalized anxiety, I can detect no unstable mood, anxiety or psychotic disorder in this patient at this time. Weighing the acute, chronic, and protective factors and based on the available evidence, I road mixer operator to reasonable degree of medical certainty that the patient is at low imminent risk of harm to self or others from mental illness as defined under the Langford act and her level of function is adequate for outpatient care. Consequently, the patient a longer meets Langford act criteria and I have lifted the Langford act. She is not interested in ongoing voluntary psychiatric hospitalization. I do think that she would benefit from management of her anxiety, and this may be exacerbating her shaking spells, regardless of whether these are epileptic or nonepileptic in nature. I have explained that benzodiazepines alone are suboptimal management of anxiety and are potentially habit forming and recommended a course of treatment to include a serotonergic antidepressant and counseling. The patient is quite wedded to her benzodiazepine and does not wish to add any other pharmacologic agents. She is willing to accept a referral for counseling on an outpatient basis. I recommend the following: --Langford Act lifted. Patient does not require further inpatient psychiatric stabilization and may be discharged as primary team sees fit. No need for a sitter from psychiatric standpoint. --I have recommended that patient consider alternative pharmacologic treatment for anxiety besides the benzodiazepine, but she has declined. She is willing to accept an outpatient counseling referral, and I will consult the family caseworker to provide this to her. --I have discussed with her the concerns that I have that she may be overusing her benzodiazepines and highlighted the addictive nature of this class of medications. She should consider chemical dependency evaluation and treatment on an outpatient basis. --I have counseled the patient regarding warning signs for need to return to the psychiatric emergency room as part of a general safety plan. --Otherwise, I have no specific recommendations at this time. I am happy to return to evaluate the patient further, particularly if she is interested in pursuing other pharmacologic options for the management of her anxiety. Case discussed with RN. Thank you very much for this consultation. Discharge Planning Langford act lifted. Patient does not require ongoing inpatient psychiatric hospitalization at this time. Request HC Surrog/Guard Advoc?: No José Summers MD August 30, 2016 11:09
[2016-08-30 11:33] LABS: RHEUMATOID FACTOR TRIGGER LESS THAN 10.0 IU/ML (0.0-14.9)
[2016-08-30 11:59] LABS: FREE T4 1.4 NG/DL (0.76-1.46)
[2016-08-30 12:00] VITALS: BP 140/90; PULSE 80; RESP 21; TEMP 99; O2SAT 99
[2016-08-30] MEDS: ALPRAZolam 0.5 MG TAB PO SCH ×2 (12:41→17:39)
--- NOTE | 2016-08-30 13:33 | MB ---
cc: JIN SOUZA M.D. DATE OF CONSULTATION: 08/30/2016 REASON FOR CONSULTATION: 55-year-old right-handed woman with a history of hypertension, heart murmur, basal cell carcinoma on the face, left foot drop. Low back surgery remotely. 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 She has a history of severe anxiety and some depression. About a week ago her fiance says she took too much of her medication including a muscle relaxer, she was very tired, then was down in psychiatry and did not get her anxiety medicine and was shaking all over. Her finance saw her yesterday have an episode of shaking in which she seemed to shake all over very violently but he did not think it was a seizure per say just that she needed her medicine. MEDICATIONS AT HOME 1. Progesterone 2. Restoril. 3. Hydrocodone. 4. Trazodone. 5. Zanaflex 6. Esterase. 7. Xanax 1 milligram t.i.d. REVIEW OF SYSTEMS She denied any diabetes, hypercholesterolemia, coronary artery bypass graft, stents, angioplasty, atrial fibrillation, Coumadin, renal, hepatic, pulmonary disease, thyroid disease, lupus, ulcer, seizure or stroke. She has not woken up wet the bed. No odd smells, taste, or sedated mood. SOCIAL HISTORY Nonsmoker or drinker. No drugs. Lives with her fiance mostly. FAMILY HISTORY: Family history is negative cancer seizure, stroke. Positive for congestive heart failure, apparently maternal grandmother and maternal cousins had seizures. LABORATORY FINDINGS: On 08/29/2016 evidently had MRIs or her CT of the brain, Electroencephalogram, stress test all normal in [place]. Telma was called early this morning for diaphoresis, shaking eyes fluttering, she was given some Ativan, it stopped as soon as she was given Ativan, her heart rate was in the 130's, 175/90, it was thus transferred up here. Last night she was having seizures but according to the fiance that is not accurate. She had a recent diarrhea was on some Cipro on azithromycin, with a temperature of 104. ALLERGIES ERYTHROMYCIN PENICILLIN SHELLFISH CURRENT MEDICATIONS 1. She is on thiamine. 2. Lovenox. 3. Multivitamin. 4. As needed Ativan 5. P.r.n. Haldol. PHYSICAL EXAMINATION: VITAL SIGNS: T-max 100.1, generally afebrile, 88, 21, 133/86, O2 sats 99%. NECK: There are no carotid bruits. HEART: The heart was regular rhythm, I did not detect a murmur. NEUROLOGIC: Pupils are equal, Visual foss are full, extraocular muscles intact without nystagmus. Face symmetric normal station. Tongue was midline. There is no drift. She had normal strength in upper lower extremities bilaterally except weakness of the left extensor hallux longus and a little bit of give away weakness in the left tibialis anterior, DTRs are 3+ symmetric throughout. Toes downgoing bilaterally. There is no clonus. Tone normal throughout. Pinprick is intact throughout. She is not ataxic on [id number]. Gait steady. Speech is fluent, not aphasic. She is alert quite x3. Follows commands well. She does appear very nervous. LABORATORY DATA Her CBC is normal. LFTs mildly increased a little bit better today. CPK, troponin, albumin normal. CBC normal. Chest x-ray Negative. IMPRESSION Probably more of an anxiety attack, then a seizure but will check an EEG here, we will check some additional blood work on her. Will get the MRI and EEG results from [place] and recheck an EEG here. I am going to restart her back on her Xanax as she of course could have a seizure from Xanax withdrawal. We will take some additional blood work. MD MADELAINE Angeles/wilver /9:39 AM /1:08 PM
--- NOTE | 2016-08-30 15:38 | HHI.PR ---
Subjective Remarks Follow-up possible seizure activity. Patient states that she feels good today. Has had no further episodes. No complaints at this time. Objective Vitals Vital Signs Date Time Temp Pulse Resp B/P Pulse Ox O2 Delivery O2 Flow Rate FiO2 08/30/16 12:00 99.0 80 21 140/90 99 08/30/16 08:00 100.1 88 21 133/86 99 08/30/16 02:30 98.5 96 20 153/80 100 I/O 08/29/16 08/29/16 08/29/16 08/30/16 08/30/16 08/30/16 07:00 15:00 23:00 07:00 15:00 23:00 Intake Total 120 ml 120 ml Balance 120 ml 120 ml Intake Oral 120 ml 120 ml # Voids 0 3 # Bowel Movements 0 0 Result Diagram: 08/30/16 0659 08/30/16658 Objective Remarks General: No acute distress. Heart: Regular rate and rhythm. No murmur. Lungs: Clear to auscultation bilaterally. No wheezes, rales, or rhonchi. Breathing is nonlabored. Abdomen: Soft, nontender, nondistended. Extremities: No lower extremity edema. Psych: Alert and oriented. 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 Seizures versus pseudoseizures: Appreciate neurology recommendations. EEG pending. Continue seizure precautions, neuro checks. 2. Suspected benzodiazepine withdrawal: Xanax restarted. 3. Suspected intentional drug overdose: Patient was initially admitted under Langford act. Appreciate psychiatry recommendations. Langford act has been lifted. Patient denies suicidal ideation. 4. DVT prophylaxis: Lovenox. Discharge Planning Plan for discharge home when cleared by neurology. Charlie Cain MD August 30, 2016 15:38
[2016-08-30] MEDS ORDERED: POTASSIUM CHLORIDE 20 MEQ CONTROLLED RELEASE TAB PO ONE (15:45)
[2016-08-30 16:00] VITALS: BP 121/80; PULSE 77; RESP 19; TEMP 99.3; O2SAT 100
[2016-08-30 18:35] VITALS: PULSE 80
[2016-08-30 20:00] VITALS: BP 134/84; PULSE 78; RESP 18; TEMP 97.5; O2SAT 97
[2016-08-31] VITALS (10 sets, daily range): BP systolic 95–138; BP diastolic 55–86; PULSE 73–115; RESP 15–19; TEMP 97–99.7; O2SAT 96–99
[2016-08-31] MEDS: ALPRAZolam 0.5 MG TAB PO SCH ×3 (01:53→05:37)
[2016-08-31] MEDS: THIAMINE INJ 100 MG in SODIUM CHLORIDE 0.9% INJ 100 ML IV SCH (04:57)
[2016-08-31] MEDS: MULTIVITAMIN INJ 10 ML, FOLIC ACID INJ 1 MG in SODIUM CHLORID 0.9% 500 ML INJ 500 ML IV SCH (04:57)
[2016-08-31] MEDS: ENOXAPARIN SODIUM 40 MG/0.4 ML SYRINGE SQ SCH (05:38)
[2016-08-31] MEDS: SODIUM CHLORIDE 0.9% FLUSH 10 ML FLUSH IV FLUSH SCH ×2 (08:36→23:07)
--- NOTE | 2016-08-31 09:19 | MG ---
cc: JIN SOUZA M.D. Sex: [id number] Hyperventilation not performed. Langford Acted. Possible pseudoseizure. MEDICATIONS: Folic acid Thiamine. DESCRIPTION: The recording starts with a normal appearing EEG except for in the bifrontal leads some sharp activity is seen at times appears to be almost a sharp slow wave at epoch 4, may very well be artifact. This is at the start of the recording. The patient is noted to be awake with eyes closed. Some blink artifact is noted. Eyes are fluttering. A wash cloth was put over her eyes. The bifrontal changes were stopped, so it appears that they were artifactual. The patient is noted to have severe anxiety. Otherwise the recording shows symmetric alpha and beta rhythms, which are synchronous. A lot of muscle artifact is noted especially over the left temporal head region bitemporally. Photic stimulation is performed. There is some symmetric posterior driving at the higher frequencies. IMPRESSION: A fair amount of artifact but I think this appears to be overall a normal EEG. There were some odd looking waves in the beginning but that appeared to be movement artifact. MD MADELAINE nAgeles/ROSA /8:26 AM /9:14 AM
--- NOTE | 2016-08-31 09:21 | HHI.PR ---
Subjective Remarks Follow up anxiety, ?seizures. Patient feels very anxious today. She is requesting to have her Xanax increased from 0.5 to 1mg, which is reportedly what she takes at home. No further seizure-like activity. Feels that she is ready to go home. Objective Vitals Vital Signs Date Time Temp Pulse Resp B/P Pulse Ox O2 Delivery O2 Flow Rate FiO2 08/31/16 08:00 99.1 79 19 123/78 98 08/31/16 04:00 97.0 89 15 138/84 97 08/31/16 03:19 91 08/31/16 00:00 97.3 73 18 137/86 96 08/30/16 20:00 97.5 78 18 134/84 97 08/30/16 18:35 80 08/30/16 16:00 99.3 77 19 121/80 100 08/30/16 12:00 99.0 80 21 140/90 99 I/O 08/30/16 08/30/16 08/30/16 08/31/16 08/31/16 08/31/16 07:00 15:00 23:00 07:00 15:00 23:00 Intake Total 120 ml 120 ml 100 ml Balance 120 ml 120 ml 100 ml Intake Oral 120 ml 120 ml IV Total 100 ml # Voids 0 3 3 # Bowel Movements 0 0 Result Diagram: 08/30/1659 08/30/16 0659 Objective Remarks General: No acute distress. Heart: Regular rate and rhythm. No murmur. Lungs: Clear to auscultation bilaterally. No wheezes, rales, or rhonchi. Breathing is nonlabored. Abdomen: Soft, nontender, nondistended. Extremities: No lower extremity edema. Psych: Alert and oriented. Anxious. 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 Seizures versus pseudoseizures: Appreciate neurology recommendations. EEG pending. Continue seizure precautions, neuro checks. 2. Suspected benzodiazepine withdrawal: Xanax restarted. 3. Suspected intentional drug overdose: Patient was initially admitted under Langford act. Appreciate psychiatry recommendations. Langford act has been lifted. Patient denies suicidal ideation. 4. DVT prophylaxis: Lovenox. 5. Anxiety: Patient is very anxious this morning. Will increase Xanax to her home dose of 1mg q6h. Discharge Planning Plan for discharge home when cleared by neurology. Charlie Cain MD August 31, 2016 09:21
[2016-08-31] MEDS: ALPRAZolam 1 MG TAB PO SCH ×3 (11:34→23:06)
--- NOTE | 2016-08-31 15:07 | HHI.PR ---
Objective Vital Signs Date Time Temp Pulse Resp B/P Pulse Ox O2 Delivery O2 Flow Rate FiO2 08/31/16 12:06 115 08/31/16 12:00 99.7 84 19 109/69 96 08/31/16 08:00 99.1 79 19 123/78 98 08/31/16 04:00 97.0 89 15 138/84 97 08/31/16 03:19 91 08/31/16 00:00 97.3 73 18 137/86 96 08/30/16 20:00 97.5 78 18 134/84 97 08/30/16 18:35 80 08/30/16 16:00 99.3 77 19 121/80 100 I/O 08/30/16 08/30/16 08/30/16 08/31/16 08/31/16 08/31/16 07:00 15:00 23:00 07:00 15:00 23:00 Intake Total 120 ml 120 ml 100 ml Balance 120 ml 120 ml 100 ml Intake Oral 120 ml 120 ml IV Total 100 ml # Voids 0 3 3 # Bowel Movements 0 0 Result Diagram: 08/30/16 0659 08/30/16 0659 Objective Remarks awake nl gait no tremor now Assessment and Plan Assessment and Plan one tremor spell when nervous today eeg ok lab ok if mri report nsb neg ok to dc i dw med teama nd nursing staff José Lilly MD August 31, 2016 15:07
[2016-08-31] MEDS ORDERED: GADODIAMIDE PF 287 MG/ML 10 ML VIAL (for RAD MRI) IV ONE (19:18)
--- NOTE | 2016-08-31 19:44 | RADRPT ---
EXAM DATE/TIME: 08/31/2016 18:59 [facility] COMPARISON: No previous studies available for comparison. INDICATIONS : Seizures. CONTRAST: 10 cc Omniscan (gadodiamide) IV MEDICAL HISTORY : None. SURGICAL HISTORY : Hysterectomy. Cholecystectomy. Discectomy, lumbar. ENCOUNTER: Initial ACUITY: 1 day PAIN SCORE: 0/10 LOCATION: cranial TECHNIQUE: Multiplanar, multisequence MRI of the brain was performed both prior to and following the administrat ion of paramagnetic contrast. FINDINGS: CEREBRUM: The ventricles are normal for age. No evidence of midline shift, mass lesion, hemorrhage or acute in farction. No extraaxial fluid collections are seen. The pituitary gland and suprasellar cistern are normal in configuration. WHITE MATTER: No significant signal abnormalities are seen in the white matter. POSTERIOR FOSSA: The cerebellum and brainstem are intact. The 4th ventricle is midline. The cerebellopontine angle is unremarkable. The cerebellar tonsils are normal in position. DIFFUSION IMAGING: No focal areas of restricted diffusion are seen. No evidence of acute infarction. EXTRACRANIAL: The visualized portions of the orbits and paranasal sinuses are unremarkable. POST-CONTRAST: No abnormal areas of parenchymal or dural enhancement. No evidence of blood-brain barrier breakdown. CONCLUSION: Normal examination for a patient of this age. Mike Ford MD on August 31, 2016 at 19:38 Board Certified Radiologist. This report was verified electronically.
[2016-09-01] MEDS: ALPRAZolam 1 MG TAB PO SCH (06:26)
[2016-09-01] MEDS: ENOXAPARIN SODIUM 40 MG/0.4 ML SYRINGE SQ SCH (06:28)
[2016-09-01] MEDS: MULTIVITAMIN INJ 10 ML, FOLIC ACID INJ 1 MG in SODIUM CHLORID 0.9% 500 ML INJ 500 ML IV SCH (06:29)
[2016-09-01] MEDS: THIAMINE INJ 100 MG in SODIUM CHLORIDE 0.9% INJ 100 ML IV SCH (06:30)
--- NOTE | 2016-09-01 07:58 | HHI.DCPOC ---
Discharge Care Plan Diagnosis: (1) Generalized anxiety disorder Goals to Promote Your Health * To prevent worsening of your condition and complications * To maintain your health at the optimal level Directions to Meet Your Goals Take your medications as prescribed Follow your dietary instruction Follow activity as directed Keep your appointments as scheduled Take your immunizations and boosters as scheduled If your symptoms worsen call your PCP, if no PCP go to Urgent Care Center or Emergency Room Smoking is Dangerous to Your Health. Avoid second hand smoke Call the 24-hour hour crisis hotline for domestic abuse at Ethel Sánchez PA-C September 01, 2016 7:57 am
--- NOTE | 2016-09-01 08:05 | HHI.DS ---
Discharge Summary Admission Date August 30, 2016 at 2:00 am Discharge Date: September 01, 2016 Admitting Diagnosis Seizures vs Pseudoseizures . 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 Donnelly is a 55 -year-old female with a history of anxiety, depression, chronic back pain, insomnia and hypertension who transferred to the [facility] emergency room from [facility] on 2015 for evaluation under [place] Act for psychiatric evaluation for suspected intentional drug overdose. According to the emergency room records, she had a positive drug screen at [facility] on August 24 for benzodiazepines and opiates. At the time that I am seeing the patient, I do not have her records from [facility]. While in the emergency room, she had several episodes of being clammy and having her eyes blink rapidly. She was medically cleared twice for inpatient psychiatry with these episodes being determined to be pseudoseizures. Dr. Barnhart's [facility] inpatient consultation on 08/29/2016 states that she had an MRI/ CT of the brain, EEG, and stress test for elevated troponins all of which were unremarkable while at [facility]. A [facility] was called after midnight for likely seizure activity. The patient was diaphoretic, shaking, and had eyes fluttering. The psychiatrist was notified and ordered Ativan 2 mg IM and according to the [facility] RN, as soon as the medication was injected, the patient's "seizure activity" ceased. During this episode, her heart rate sustained in the 130s and her blood pressure was 175/90. Respirations were 28. [facility] hospitalists were called for transfer to the [facility] hospital. The case was discussed with supervising physician Dr. Barrientos who recommended admission with neurology consultation to r/ o seizures. The patient was seen in her hospital room. She states she is confused and does not know why she is at the hospital. She verbalizes no memory of her time at [facility] in [place] and no memory of being at the psychiatric inpatient facility. She does not recall having any seizure activity. She is able to tell me the year, president, city, name of hospital, name of her primary care physician, location of her pharmacy at and [facility], and provided me with a fairly good medical history otherwise. She tells me she has had seizures for the past month or so that her physician Dr. Iqbal has been following but denies being on any medications for seizures. She reports having at least 3 seizures in the last month but cannot provide any reliable history on this in terms of whether the seizures had happened at a hospital or at home. She denies ever seeing a neurologist for this condition that she reports she had a seizure that lasted for 1.5 hours. She takes Xanax 1 mg 4 times a day and states that sometimes she takes up to 2 mg if needed in one dosing. She reports recently being treated with both azithromycin and ciprofloxacin for diarrhea and a URI. Her symptoms have since resolved. Her max temperature was 104 and was accompanied by chills. She had cough, congestion, clear mucus, and mild shortness of breath. She denied nausea and vomiting and denied bloody or black stools. She denied any hematuria or dysuria. She reports a history of anxiety since the age of 16, insomnia, and hypertension. She also reports chronic back pain from a microdiscectomy to L1- L2 in 2001 with subsequent left foot drop. She also reports a history of skin cancer to include basal cell carcinoma as well as melanoma. She reports surgical removal of skin cancers and denies any radiation or chemotherapy. She denies diabetes mellitus, heart disease, respiratory disease, kidney or liver problems, or thyroid disease. . CBC/BMP: 08/30/16 0659 08/30/16 0659 Significant Findings Laboratory Tests Test 08/30/16 06:59 Red Blood Count 3.65 MIL/MM3 (4.00-5.30) Hematocrit 32.7 % (35.0-46.0) Potassium Level 3.1 MEQ/L (3.5-5.1) Blood Urea Nitrogen 5 MG/DL (7-18) Aspartate Amino Transf 49 U/L (15-37) (AST/SGOT) Alanine Aminotransferase 60 U/L (10-53) (ALT/SGPT) PE at Discharge GENERAL: Well-nourished, well-developed thin female patient in NAD. SKIN: Warm and dry. No rash. HEENT: Normocephalic. Atraumatic. Pupils equal and round. Mucous membranes pink and moist. NECK: Supple. Trachea midline. CARDIOVASCULAR: Regular rate and rhythm. S1, S2 noted. No murmur appreciated. RESPIRATORY: No accessory muscle use. Clear to auscultation. Breath sounds equal bilaterally. GASTROINTESTINAL: Abdomen soft, non-tender, nondistended. Normoactive bowel sounds x4. MUSCULOSKELETAL: No obvious deformities. Extremities without clubbing, cyanosis , or edema. NEUROLOGICAL: Awake and alert. No obvious cranial nerve deficits. Motor grossly within normal limits. Normal speech. PSYCHIATRIC: Appropriate mood and affect; insight and judgment normal. Pt update on day of discharge Follow up for anxiety, seizure vs pseudoseizures. The patient reports feeling well this morning, she wants to go home. She states she slept well last night. No further seizure activity overnight. Discussed with the RN. Hospital Course 1. Seizures versus pseudoseizures: Neurology was consulted, seen by Dr. Coulter. EEG negative. Brain MRI negative. Continue seizure precautions, neuro checks. No further seizure activity. 2. Suspected benzodiazepine withdrawal: Xanax restarted. Outpatient f/up with her PCP Dr. Iqbal. 3. Suspected intentional drug overdose: Patient was initially admitted under Lang[place] act. Psychiatry consulted. Langford act has been lifted. Patient denies suicidal ideation. 4. DVT prophylaxis: Lovenox. 5. Anxiety: patient very anxious throughout admission. Increased Xanax to her home dose of 1mg q6h (verified on [facility] Prescription drug monitoring website) Pt Condition on Discharge: Stable Discharge Disposition: Discharge Home Discharge Time: <= 30 minutes Discharge Instructions DIET: Follow Instructions for: As Tolerated, No Restrictions Activities you can perform: Regular-No Restrictions Activities to Avoid: Driving Other Activity Instructions: No driving or operating heavy machinery. No swimming or bathing alone, ok to shower. No climbing heights or carrying small children. These activities increase your risk for injury or to yourself or others if you were to have a seizure. Avoid alcohol, stressful situations, caffeine, lack of sleep, loud noises, flashing lights, and dehydration as these can all trigger a seizure. Follow up Referrals: PCP Follow-up - 2-3 Days with Matilde Iqbal MD Continued Medications: Alprazolam (Xanax 1 Mg Tab) 1 Mg Tab 1 MG PO TID TAB Diclofenac Sod (Diclofenac Sodium Dr) 75 Mg Tab 75 MG PO BID PRN PAIN #20 TAB Estradiol (Estrace) 0.5 Mg Tab 1 MG PO DAILY TAB Progesterone Micronized (Progesterone) 100 Mg Cap 100 MG PO CAP Discontinued Medications: Hydrocodone/Acetaminophen 5 mg/325 mg (Hydrocodone/Acetaminophen 5 mg/325 mg) 1 Tab Tab 1 TAB PO Q6H PRN TAB Methocarbamol (Robaxin-750) 750 Mg Tab 750 MG PO QID PRN PAIN #20 TAB Temazepam 7.5 mg (Restoril 7.5 mg) 7.5 Mg Cap 1 CAP PO HS CAP Tizanidine 4 mg capsule (Zanaflex 4 mg capsule) 4 Mg Cap 4 MG PO BID CAP Trazodone HCl (Trazodone HCl) 100 Mg Tab 100 MG PO HS TAB Ethel Sánchez PA-C September 01, 2016 8:05 am
[2016-09-01 08:19] VITALS: BP 122/75; PULSE 86; RESP 16; TEMP 97.8; O2SAT 100
[2016-09-01 14:11] LABS: RAPID PLASMA REAGIN SCREEN NON-REACTIVE (NON-REACTVE)
[2016-09-01 14:47] LABS: ANA SCREEN NEG (NEG)
[2016-09-02] MEDS ORDERED: THIAMINE HCL 100 MG TAB PO SCH (09:00)
== END 2016-09-01 10:13 | disposition home or self-care (01) | DRG 897 ==
LOC: N05A 02:00
PROVIDERS: ADMIT Family Medicine; ATTEND Family Medicine
DX: F13.239 Sedative, hypnotic or anxiolytic dependence with withdrawal, unspecified (principal); R56.9 Unspecified convulsions; Y92.9 Unspecified place or not applicable; F41.1 Generalized anxiety disorder; G47.00 Insomnia, unspecified; I10 Essential (primary) hypertension; G89.29 Other chronic pain; M21.372 Foot drop, left foot; F43.23 Adjustment disorder with mixed anxiety and depressed mood
CPT/HCPCS: 70553; 80053; 82607; 82948; 83735; 83921; 84425; 84439; 84443; 85025; 85652; 86038; 86430; 86592; 95819; A9579; J1650; J2060; J2405; J3411; J7040